=== PATIENT | male | born 1950 | race Caucasian/White ===

== ENCOUNTER → 2016-05-13 | Outpatient (CLI) | payer OTHER ==
[~2016-05-13] MED LIST: ASCO500T3 PO; ASPI325T45 PO; IBUP-103 PO; LISI-461 PO; METF-384 PO; NAPR500T3 PO
--- NOTE | 2016-05-14 07:55 | SPLIT NIGHT TECHNICIAN REPORT ---
[facility] Split Night Polysomnogram - Glass Loading Equipment Tender Report Study date: 05/13/2016 Referring Physician: Trevor Cervantes Pulmonary Name: JENISE MONROE Nadege Glass Loading Equipment Tender: Jacy [facility] Date of : 1950 Height: 65 years, Height 5' 10" Sex: Male Weight: 218 lbs Age: 65 Neck Circum: 19 inches BMI: Medications: 31.28 Metformin 1000 mg, Lisinopril 10 mg Patient History 65 yr. old male here for a modified split night sleep study if AHI is greater than 15 in 2 hours of sleep. Patient complains of witness apneas and loud snoring. Parameters Monitored NPSG: E1-M2, E2-M1, Fp1-M2, Fp2-M1, F3-M2, F4-M2, F4-M1, C3-M2, C4-M2, C4-M1, O1-M2, O2-M2, O2-M1, T3-M2, T4-M1, P3-M2, P4-M1, CHIN1, CHIN2, HR, EKG, Legs, PFLOW, SNOR, FLOW, CFLOW, Tidal Volume, THOR, ABDO, SpO2, PLTH, CPRESS, ETCO2 Wave, ETCO2, pH SLEEP SUMMARY DATA DIAGNOSTIC TREATMENT Lights Out: 9:33:33 PM 12:23:33 AM Lights On: 12:17:03 AM 5:39:03 AM Total Recording Time (TRT): 163.5 min. 316.0 min. Total Sleep Time (TST): 121.5 min. 275.5 min. NREM Time: 117.5 min. 215.5 min. REM Time: 4.0 min. 60.0 min. Sleep Period Time (SPT): 155.5 min. 314.5 min. Sleep Efficiency (SE): 74 % 87 % Sleep Latency: 8.0 min. 1.0 min. Arousal Index: 6.9 6.5 PAP Treatment Levels: 4, 5, 6, 8, 10, 11, 12, 13, 14, 15 * Optimal Pressure(s) SLEEP STAGING DATA DIAGNOSTIC TREATMENT Duration (min) TST % Duration (min) TST % Stage Wake: 42.0 min. -- 40.0 min. -- WASO: 34.0 min. -- 39.0 min. -- NREM: 117.5 min. 97 % 215.5 min. 78 % Stage N1: 20.5 min. 17 % 26.0 min. 9 % Stage N2: 90.0 min. 74 % 185.0 min. 67 % Stage N3: 7.0 min. 6 % 4.5 min. 2 % REM: 4.0 min. 3 % 60.0 min. 22 % POSITIONAL DATA Event Count Index Event Count Index Supine: 32 19.1 88 20.1 Supine NREM: 27 16.8 59 17.5 Supine REM: 5 75 29 29 Non-Supine: 0 0.0 2 7.5 Non-Supine NREM: 0 0.0 2 7.5 Non-Supine REM: N/A N/A N/A N/A AROUSAL SUMMARY DATA: Event Count Index Event Count Index Apnea Arousals: 1 0.5 3 1.5 Hypopnea Arousals: 4 2.0 11 2.4 Snore Arousals: 3 1.5 2 0.4 PLM Arousals: 6 3.0 13 2.8 Non-Specific Arousals: 0 0.0 3 0.7 Total Arousals: 14 6.9 30 6.5 MYOCLONUS (PLM) Event Count Index Event Count Index PLM: 138 68.1 290 63.2 PLM AROUSAL: 6 3.0 13 2.8 PLM W/O AROUSAL 138 68.1 277 60.3 PLM W/RESP EVENT 3 0.0 9 0.0 MYOCLONUS (PLM) Event Count Index Event Count Index LM: 2 14.3 58 12.6 LM AROUSAL: 2 1.0 2 0.4 LM W/O AROUSAL LM W/RESP EVENT LM NON SPECIFIC 151 74.6 311 67.7 HEART RATE DATA DIAGNOSTIC TREATMENT Sleep (bpm): 77 79 REM (bpm): 90 92 NREM (bpm): 93 95 Tachycardia Count: 0 0 Tachycardia Duration: 0.00 0 Bradycardia Count: 0 0 Bradycardia Duration: 0.00 0 DIAGNOSTIC PORTION TREATMENT PORTION RESPIRATORY DATA Event Count Index Event Count Index AHI: -- 15.8 -- 19.4 RDI: -- 15.8 -- 20 Obstructive Apnea: 1 0.5 7 1.5 Central Apnea: 0 0.0 0 0.0 Mixed Apnea: 0 0.0 0 0.0 Hypopnea: 31 15.3 82 17.9 RERA: 0 0.0 1 0.2 Total Apneas: 1 0.5 7 1.5 RESPIRATORY DATA REM NREM SLEEP REM NREM SLEEP Supine Position: Obstructive Apneas: 0 1 1 3 4 7 Central Apneas: 0 0 0 0 0 0 Mixed Apneas: 0 0 0 0 0 0 Hypopneas: 5 26 31 26 54 80 RERA 0 0 0 0 1 1 Total Supine Events: 5 27 32 29 59 88 Supine AHI: 75 16.8 19.1 29 17.5 20.1 Supine RDI: 75.0 16.8 19.1 29.0 17.8 20.4 REM NREM SLEEP REM NREM SLEEP Non-Supine Position: Obstructive Apneas: N/A 0 0 N/A 0 0 Central Apneas: N/A 0 0 N/A 0 0 Mixed Apneas: N/A 0 0 N/A 0 0 Hypopneas: N/A 0 0 N/A 2 2 RERA N/A 0 0 N/A 0 0 Total Supine Events: N/A 0 0 N/A 2 2 Supine AHI: N/A 0.0 0.0 N/A 7.5 7.5 Supine RDI: N/A 0.0 0.0 N/A 7.5 7.5 OXYGEN DESTAURATION DATA: Event Count Index Event Count Index REM Desaturations: 5 75.0 29 29.0 NREM Desaturations: 25 12.8 58 16.1 SNORE DATA DIAGNOSTIC TREATMENT Snore Time: 45.0 12:24:33 AM Snore TST%: 13 9 Snore Arousal Count: 3 2 Snore Arousal Index: 1.5 0.4 Desaturation Event Summary: Minimum %SpO2 Event Count Mean/Min/Max Duration(sec.) Desaturation Index % Time In Bed > 90 124 36.0 / 11.0 / 59.8 17.3 90.4 86 - 90 6 30.3 / 18.3 / 48.0 11.5 6.6 81 - 85 3 21.3 / 12.3 / 33.3 16.0 2.4 76 - 80 1 33.3 / 33.3 / 33.3 29.8 0.4 71 - 75 0 N/A 0.0 0.2 66 - 70 0 N/A 0.0 0.1 61 - 65 0 N/A 0.0 0.0 56 - 60 0 N/A 0.0 0.0 51 - 55 0 N/A 0.0 0.0 < 50 0 N/A 0.0 0.0 OXYGEN SATURATION DATA DIAGNOSTIC TREATMENT SpO2 Mean Sleep: 93 % 94 % SpO2 Mean REM: 90 % 92 % SpO2 Mean NREM: 93 % 95 % SpO2 Minimum Sleep: 80 % 66 % SpO2 Minimum REM: 80 % 66 % SpO2 Minimum NREM: 81 % 86 % Time Below 90% (TST): 4.3 14.8 Time Below 88% (TST): 1.6 8.9 Total REM NREM Awake <50% 0.0 min. 0.0 min. 0.0 min. 0.0 min. 51 - 60% 0.0 min. 0.0 min. 0.0 min. 0.0 min. 61 - 70% 0.3 min. 0.3 min. 0.0 min. 0.0 min. 71 - 80% 2.9 min. 2.9 min. 0.0 min. 0.0 min. 81 - 90% 42.5 min. 14.1 min. 10.5 min. 17.9 min. 91 - 100% 431.2 min. 46.6 min. 322.4 min. 62.2 min. Average 94 92 94 93 Minimum SpO2 66 66 81 81 Desaturation Event Index 16.2 31.9 15.0 10.2 # Desat. Events below 89% 27 21 6 0 Time(%) with Saturation below 89% 6.1 2.3 0.5 3.3 Time(min.) with Saturation below 89% 29.2 11.2 2.2 15.8 Recording Glass Loading Equipment Tender Comments: Mr. Monroe slept in the right and supine positions. No cardiac arrhythmia. PLMs noted. No bruxism noted. Snoring was noted and scored as a 4 on a scale of 0 through 5. (0=no snoring, 5=snoring loud enough to be heard through a closed door or down the cause[address] way) At 12:23 am , Mr. Monroe met specific Split-Night criteria during the diagnostic portion of this study. CPAP was initiated at +4 CMH2O and up-titrated to a level of +15 CMH2O Cflex 2. A Medium Simplus full face mask, was used during titration. Mr. Monroe did not wake to use the restroom during the night. The final report will be interpreted and signed by a sleep physician. The completed physician report will then be placed in the patient medical record. Therapy Event: Therapy (cm H20) 0 4 5 6 8 10 Total Time at Pressure (min.) 163.5 22.9 16.7 6.3 15.2 34.8 TST at Pressure (min.) 121.5 21.4 16.2 6.3 15.2 32.3 # Periods 1 1 1 1 1 1 Sleep Onset (min.) 8.0 1.0 0.0 0.0 0.0 0.0 REM Onset (min.) 123.0 N/A 15.6 0.0 0.0 N/A Sleep Efficiency % 74 93 97 100 100 92 Wakefulness (%) 25.7 6.6 3.0 0.0 0.0 7.2 Wakefulness (min.) 42.0 1.5 0.5 0.0 0.0 2.5 NREM 1 (%) 12.5 15.3 6.0 0.0 0.0 5.7 NREM 1 (min.) 20.5 3.5 1.0 0.0 0.0 2.0 NREM 2 (%) 55.0 78.2 84.3 0.0 4.1 87.1 NREM 2 (min.) 90.0 17.9 14.1 0.0 0.6 30.3 NREM 3 (%) 4.3 0.0 0.0 0.0 0.0 0.0 NREM 3 (min.) 7.0 0.0 0.0 0.0 0.0 0.0 REM (%) 2.4 0.0 6.8 100.0 95.9 0.0 REM (min.) 4.0 0.0 1.1 6.3 14.6 0.0 # Arousals 14 4 2 0 0 4 Arousal Index 6.9 11.2 7.4 0.0 0.0 7.4 # Snore 1,132 122 114 25 72 74 Snore Index 559.0 342.2 421.1 239.4 283.7 137.3 AHI 15.8 8.4 25.9 47.9 47.3 13.0 AHI Supine 19.1 8.4 25.9 47.9 47.3 18.5 AHI Non-Supine 0.0 N/A N/A N/A N/A 7.5 NREM AHI 13.8 8.4 23.8 N/A 95.5 13.0 REM AHI 75.0 N/A 52.9 47.9 45.2 N/A RDI 15.8 8.4 25.9 47.9 47.3 13.0 # Obstructive 1 0 0 3 0 0 # Central Ap 0 0 0 0 0 0 # Mixed 0 0 0 0 0 0 # Hypopneas 31 3 7 2 12 7 RERAS 0 0 0 0 0 0 Total Respiratory Events 32 3 7 5 12 7 Time Below SpO2 89.00% (min.) 2.5 0.0 0.6 3.5 4.3 0.0 Mean NREM SpO2 (%) 93 93 94 N/A 96 94 Mean REM SpO2 (%) 90 N/A 91 86 90 N/A Mean Sleep SpO2 (%) 93 93 93 86 90 94 Min NREM SpO2 (%) 81 90 86 N/A 90 90 Min REM SpO2 (%) 80 N/A 78 72 66 N/A Position Supine (min.) 100.3 21.4 16.2 6.3 15.2 16.3 Position Non-supine (min.) 21.2 0.0 0.0 0.0 0.0 16.1 LM Index Sleep 82.5 154.3 147.7 67.0 39.4 89.0 LM Index NREM 85.3 154.3 150.9 N/A 0.0 89.0 LM Index REM 0.0 N/A 105.7 67.0 41.1 N/A Mean Heart Rate (bpm) 77 79 80 84 82 81 Min Heart Rate (bpm) 67 71 68 77 68 71 Therapy (cm H20) 11 12 13 14 15 Total Time at Pressure (min.) 31.6 18.0 134.1 18.1 17.7 TST at Pressure (min.) 31.6 18.0 103.1 17.1 14.2 # Periods 1 1 1 1 1 Sleep Onset (min.) 0.0 0.0 0.0 0.0 0.0 REM Onset (min.) N/A 2.4 0.0 N/A N/A Sleep Efficiency % 100 100 76 94 80 Wakefulness (%) 0.0 0.0 23.1 5.5 19.7 Wakefulness (min.) 0.0 0.0 31.0 1.0 3.5 NREM 1 (%) 7.9 0.0 9.3 5.5 19.7 NREM 1 (min.) 2.5 0.0 12.5 1.0 3.5 NREM 2 (%) 77.8 13.5 50.8 88.9 60.6 NREM 2 (min.) 24.6 2.4 68.2 16.1 10.7 NREM 3 (%) 14.2 0.0 0.0 0.0 0.0 NREM 3 (min.) 4.5 0.0 0.0 0.0 0.0 REM (%) 0.0 86.5 16.7 0.0 0.0 REM (min.) 0.0 15.6 22.4 0.0 0.0 # Arousals 11 0 6 1 2 Arousal Index 20.9 0.0 3.5 3.5 8.4 # Snore 102 75 111 6 8 Snore Index 193.7 250.1 64.6 21.1 33.7 AHI 28.5 30.0 4.1 52.6 37.9 AHI Supine 28.5 30.0 4.1 52.6 37.9 AHI Non-Supine N/A N/A N/A N/A N/A NREM AHI 28.5 0.0 3.0 52.6 37.9 REM AHI N/A 34.7 8.0 N/A N/A RDI 30.4 30.0 4.1 52.6 37.9 # Obstructive 3 0 0 1 0 # Central Ap 0 0 0 0 0 # Mixed 0 0 0 0 0 # Hypopneas 12 9 7 14 9 RERAS 1 0 0 0 0 Total Respiratory Events 16 9 7 15 9 Time Below SpO2 89.00% (min.) 0.1 2.0 0.4 0.0 0.0 Mean NREM SpO2 (%) 95 95 96 94 94 Mean REM SpO2 (%) N/A 93 95 N/A N/A Mean Sleep SpO2 (%) 95 93 95 94 94 Min NREM SpO2 (%) 87 86 88 89 89 Min REM SpO2 (%) N/A 82 88 N/A N/A Position Supine (min.) 31.6 18.0 103.1 17.1 14.2 Position Non-supine (min.) 0.0 0.0 0.0 0.0 0.0 LM Index Sleep 87.4 3.3 80.9 7.0 0.0 LM Index NREM 87.4 0.0 100.4 7.0 0.0 LM Index REM N/A 3.9 10.7 N/A N/A Mean Heart Rate (bpm) 81 80 77 78 78 Min Heart Rate (bpm) 72 72 67 71 70
--- NOTE | 2016-05-14 23:17 | POLYSOMNOGRAPH REPORT ---
CLINICAL DATA: The patient is a 65-year-old male with BMI of 31.28, referred by Dr. Cervantes for a modified split-night study with a history of witnessed apnea and mild snoring. This was a split-night study. SLEEP ARCHITECTURE: For the diagnostic portion of the study, total sleep period was 155.5 minutes. Total sleep time was 121.5 minutes divided between 117.5 minutes of non-REM sleep and 4 minutes of REM sleep. Sleep efficiency was 74%. Arousal index was 6.9. Sleep latency was 8 minutes. Sleep consisted of stage N1 17%, N2 74%, N3 6%, REM 3%. For the treatment portion of the study, total sleep period was 314.5 minutes. Total sleep time was 275.5 minutes divided between 215.5 minutes of non-REM sleep and 60 minutes of REM sleep. Sleep latency was 1 minute. Sleep efficiency was 87%. Arousal index was 6.5. Sleep consisted of stage N1 9%, N2 67%, N3 2%, and REM 22%. AROUSAL DATA: Prior to treatment, 14 arousals were recorded for an index of 6.9 per hour. Following treatment, 30 arousals were recorded for an index of 6.5 per hour. PLM DATA: Prior to treatment, 151 limb movements during sleep were noted for an index of 74.6 per hour. Following treatment, 311 limb movements during sleep were noted for an index of 67.7 per hour. EKG: Heart rates ranged from 77-95 beats per minute. No arrhythmias were noted. RESPIRATORY DATA: Moderate sleep apnea was documented prior to treatment. The AHI was 15.8. There was 1 obstructive apneic episode and 31 hypopneic episodes recorded. Following treatment, the mean AHI was 19.4. There were 7 obstructive apneic episodes and 82 hypopneic episodes recorded. OXIMETRY DATA: Nocturnal hypoxemia was seen prior to treatment. Oxygen aydin was 66% during REM sleep during treatment. Mean saturation during treatment was 94%. CLIP ON SUNGLASSES INSPECTOR'S COMMENTS AND TREATMENT SUMMARY: The patient slept in the right and supine positions. Snoring was severe, rated 4 on a scale of 1 through 5. At 12:23 a.m., the patient met split-night criteria. CPAP was started using a medium Simplus full face mask. The patient was started on CPAP and was titrated incrementally up to 15 cm of water pressure. At 13 cm water pressure, the patient slept for 103 minutes with an AHI of 4.1. However, he continued to develop progressive hypopneic episodes and apneic episodes in the last hour of sleep. CPAP was increased to 15 cm water pressure. However, at that pressure setting, the patient only slept for 14 minutes and had an AHI of 37.9. IMPRESSION: Moderate sleep apnea/hypopnea with a diagnostic AHI of 15.8 with an attempt at CPAP titration. No optimal pressure setting could be obtained during the limited time of CPAP titration. RECOMMENDATIONS: The patient may benefit from use of auto-CPAP or repeat full sleep study with CPAP/BiPAP titration. Clinical correlation is needed. ROCHELLED
--- NOTE | 2016-05-20 09:31 | CODING QUERY MEDICAL NECESSITY ---
SUPPORTING DIAGNOSIS NEEDED A supporting diagnosis is required for the test/procedure performed on this patient in order for us to be reimbursed by the patient's insurance. Please provide a supporting diagnosis for the following test/procedure listed below next to the test name along with your signature. *If there is no additional diagnosis for this patient that would support the following test/procedure please document that below next to the test/procedure. Test(s)/Procedure(s) that require a supporting diagnosis: * SLEEP STUDY DIAGNOSIS: * DOS: 05/13/16 Provider Signature: Date: Thank you Shalini Barton Health Information Management Once completed, please kindly fax back to [phone] For questions please call [phone]
== END | disposition home or self-care (01) ==
LOC: C.NEUR 21:00
PROVIDERS: ATTEND Internal Medicine Pulmonary Disease
DX: I10 Essential (primary) hypertension (principal); G47.9 Sleep disorder, unspecified

== ENCOUNTER → 2016-05-27 | Outpatient (CLI) | payer OTHER ==
[~2016-05-27] VITALS: Ht 179.1 cm; Wt 101.4 kg
[2016-05-27 14:59] VITALS: BP 144/85; PULSE 94; Ht 179.1 cm; Wt 101.4 kg
== END | disposition home or self-care (01) ==
LOC: C.NEUR 14:40
PROVIDERS: ATTEND Internal Medicine Pulmonary Disease
DX: G47.33 Obstructive sleep apnea (adult) (pediatric) (principal)

== ENCOUNTER → 2016-08-09 | Outpatient (CLI) | payer OTHER ==
[2016-08-09 12:23] LABS: ESTIMATED AVERAGE GLUCOSE 111 mg/dl; HA1C FLAG Normal (Normal)
[2016-08-09 12:29] LABS: ALT/SGPT 22 U/L (12-78); BLOOD UREA NITROGEN 14 mg/dl (7-18); BUN/CREATININE RATIO 20.3 (10-20); CALCIUM 8.3 mg/dl (8.5-10.1); CARBON DIOXIDE 27 mmol/L (21-32); CHLORIDE 106 mmol/L (98-107); CHOLESTEROL 176 mg/dl (0-200); CREATININE 0.71 mg/dl (0.60-1.40); GLUCOSE 114 mg/dl (70-99); POTASSIUM 3.9 mmol/L (3.5-5.1); SODIUM 140 mmol/L (136-145); TRIGLYCERIDES 160 mg/dl (0-150); VERY LOW DENSITY LIPOPROT CALC 32 mg/dl
[2016-08-09 12:34] LABS: ALKALINE PHOSPHATASE 50 U/L (45-117); AST/SGOT 16 U/L (15-37); CHOLESTEROL/HDL RATIO 4.9; HDL CHOLESTEROL 36 mg/dl; LDL CHOLESTEROL CALCULATED 108 mg/dl
[2016-08-09 12:42] LABS: RATIO 4.9 mcg/mg (0-30.0)
== END | disposition home or self-care (01) ==
LOC: C.LABBFT 07:52
PROVIDERS: ATTEND Family Medicine
DX: E11.9 Type 2 diabetes mellitus without complications (principal); Z12.5 Encounter for screening for malignant neoplasm of prostate; E78.5 Hyperlipidemia, unspecified

== ENCOUNTER → 2017-02-17 | Outpatient (CLI) | payer OTHER ==
[2017-02-17 12:45] LABS: ESTIMATED AVERAGE GLUCOSE 108 mg/dl; HA1C FLAG Normal (Normal)
[2017-02-17 12:58] LABS: ALT/SGPT 24 U/L (12-78); AST/SGOT 17 U/L (15-37); BLOOD UREA NITROGEN 19 mg/dl (7-18); BUN/CREATININE RATIO 22.5 (10-20); CALCIUM 8.8 mg/dl (8.5-10.1); CARBON DIOXIDE 27 mmol/L (21-32); CHLORIDE 106 mmol/L (98-107); CREATININE 0.85 mg/dl (0.60-1.40); GLUCOSE 101 mg/dl (70-99); POTASSIUM 4.2 mmol/L (3.5-5.1); SODIUM 139 mmol/L (136-145)
[2017-02-17 13:01] LABS: ALKALINE PHOSPHATASE 50 U/L (45-117); CHOLESTEROL 179 mg/dl (0-200); CHOLESTEROL/HDL RATIO 4.3; HDL CHOLESTEROL 42 mg/dl; LDL CHOLESTEROL CALCULATED 113 mg/dl; TRIGLYCERIDES 121 mg/dl (0-150); VERY LOW DENSITY LIPOPROT CALC 24 mg/dl
== END | disposition home or self-care (01) ==
LOC: C.LABBFT 07:53
PROVIDERS: ATTEND Internal Medicine
DX: I10 Essential (primary) hypertension (principal); E78.5 Hyperlipidemia, unspecified; E11.9 Type 2 diabetes mellitus without complications

== ENCOUNTER → 2017-02-24 | Outpatient (CLI) | payer OTHER ==
[~2017-02-24] VITALS: Ht 177.8 cm; Wt 98.4 kg
[2017-02-24 11:33] VITALS: BP 151/92; PULSE 82; Ht 177.8 cm; Wt 98.4 kg
== END | disposition home or self-care (01) ==
LOC: C.NEUR 08:45
PROVIDERS: ATTEND Internal Medicine Pulmonary Disease
DX: G47.33 Obstructive sleep apnea (adult) (pediatric) (principal)

== ENCOUNTER 2017-04-28 23:52 | Emergency (ER) | payer OTHER ==
[~2017-04-28] VITALS: Ht 177.8 cm; Wt 101.2 kg
[~2017-04-28 23:52] MED LIST changes: +ASPECOTC PO; -ASPI325T45 PO; +NAPR-1231 PO; -NAPR500T3 PO
[2017-04-28 23:55] VITALS: TEMP 36.8; Ht 177.8 cm; Wt 101.2 kg
[2017-04-29] MEDS ORDERED: METOPROLOL TARTRATE 50 MG TAB PO STA (00:18)
--- NOTE | 2017-04-29 00:27 | EMERGENCY ROOM VISIT NOTE ---
History Report prepared by Poojaibtirso: Yojana Pace Under the Supervision of: Dr. Cyndi Oliveira M.D. First contact with patient: 00:05 Chief Complaint: HYPERTENSION Stated Complaint: BLOOD PRESSURE HIGH,LIGHT HEADED History of Present Illness The patient is a 66 year old male who presents to the Emergency Room with complaints of an episode on hypertension occurring about an hour ago. The patient states he was in the shower this evening when he stated to feel light headed. He then checked his blood sugar which was normal. The patient notes that a couple hours after showering he was watching television and started to feel lightheaded again. During this second episode of lightheadedness, he took his blood pressure which was elevated. He patient notes taking his blood pressure mediation this morning. The patient was last seen by PCP a month ago who upped his blood pressure medication. The patient notes lack of sleep but denies any shortness of breath or chest pain. The patient wears a CPAP. He take trazodone and notes he has been "struggling" with his CPAP machine. The patient reports chronic neck pain and states that his CPAP machine aggravates his neck pain. He follows with Dr. Briceno and reports going through five different CPAP masks because he has been unable to find one that works for him. The patient does not check his blood pressure regularly. The patient takes 50 mg losartan daily. The patient has a history of diabetes and hypertension. Source of History: patient Onset: an hour ago Position: other (generalized) Quality: other (hypertension) Timing: other (episode) Associated Symptoms: No chest pain, No SOB Review of Systems See HPI for pertinent positives & negatives. A total of 10 systems reviewed and were otherwise negative. Past Medical & Surgical Medical Problems: (1) Diabetes (2) HTN (hypertension) Family History Cancer Hypertension Social History Smoking Status: Never Smoker Drug Use: none Marital Status: Housing Status: lives with family Occupation Status: employed Current/Historical Medications Scheduled Ascorbic Acid (Vitamin C), 500 MG PO QAM Losartan Potassium (Cozaar), 50 MG PO DAILY Metformin Hcl (Glucophage), 1,000 MG PO BID Metoprolol Tartrate (Lopressor) (Lopressor), 25 MG PO BID Trazodone Hcl (Trazodone), 50 MG PO HS Allergies Coded Allergies: Promethazine (Unverified Allergy, Intermediate, HALLUNICATIONS, 01/06/16) Penicillins (Verified Allergy, Unknown, 01/06/16) Physical Exam Vital Signs Date Time Temp Pulse Resp B/P (MAP) Pulse Ox O2 Delivery O2 Flow Rate FiO2 04/29/17 02:00 70 16 118/81 94 Room Air 04/29/17 01:30 73 16 126/85 95 Room Air 04/29/17 01:15 77 16 133/86 96 Room Air 04/29/17 01:00 84 18 136/82 95 Room Air 04/29/17 00:37 90 18 155/101 95 Room Air 04/29/17 00:20 92 04/28/17 23:55 36.8 89 18 167/95 95 Room Air Physical Exam Vital signs reviewed. General: Well-appearing male, in no significant distress. HEENT: No scleral icterus, PERRLA, neck supple. Atraumatic. Cardiovascular: Noted to be hypertensive. Regular rate and rhythm, no extra sounds. Pulmonary: Clear to auscultation bilaterally, normal work of breathing. Abdomen: Soft, nontender, nondistended, positive bowel sounds. Musculoskeletal: Atraumatic, no peripheral edema. Neurologic: Patient awake alert and oriented x 3, full strength in all 4 extremities. Cranial nerves 2 through 12 grossly intact. Skin: Warm, dry, no rash Medical Decision & Procedures ER Provider Diagnostic Interpretation: CHEST X-RAY: no focal lung consolidation, no failure. Laboratory Results 04/29/17 00:30 Red Blood Count 4.79, Mean Corpuscular Volume 88.3, Mean Corpuscular Hemoglobin 31.5, Mean Corpuscular Hemoglobin Concent 35.7, Mean Platelet Volume 9.5, Neutrophils (%) (Auto) 73.0, Lymphocytes (%) (Auto) 17.5, Monocytes (%) (Auto) 6.1, Eosinophils (%) (Auto) 2.8, Basophils (%) (Auto) 0.4, Neutrophils # (Auto) 6.87, Lymphocytes # (Auto) 1.65, Monocytes # (Auto) 0.57, Eosinophils # (Auto) 0.26, Basophils # (Auto) 0.04 04/29/17 00:30 Test 04/29/17 00:20 04/29/17 00:30 04/29/17 00:34 Urine Color YELLOW Urine Appearance CLEAR (CLEAR) Urine pH 5.5 (4.5-7.5) Urine Specific [place] 1.022 (1.000-1.030) Urine Protein NEG (NEG) Urine Glucose (UA) NEG (NEG) Urine Ketones NEG (NEG) Urine Occult Blood NEG (NEG) Urine Nitrite NEG (NEG) Urine Bilirubin NEG (NEG) Urine Urobilinogen NEG (NEG) Urine Leukocyte Esterase NEG (NEG) White Blood Count 9.41 K/uL (4.8-10.8) Red Blood Count 4.79 M/uL (4.7-6.1) Hemoglobin 15.1 g/dL (14.0-18.0) Hematocrit 42.3 % (42-52) Mean Corpuscular Volume 88.3 fL (80-100) Mean Corpuscular Hemoglobin 31.5 pg (25-34) Mean Corpuscular Hemoglobin Concent 35.7 g/dl (32-36) Platelet Count 218 K/uL (130-400) Mean Platelet Volume 9.5 fL (7.4-10.4) Neutrophils (%) (Auto) 73.0 % Lymphocytes (%) (Auto) 17.5 % Monocytes (%) (Auto) 6.1 % Eosinophils (%) (Auto) 2.8 % Basophils (%) (Auto) 0.4 % Neutrophils # (Auto) 6.87 K/uL (1.4-6.5) Lymphocytes # (Auto) 1.65 K/uL (1.2-3.4) Monocytes # (Auto) 0.57 K/uL (0.11-0.59) Eosinophils # (Auto) 0.26 K/uL (0-0.5) Basophils # (Auto) 0.04 K/uL (0-0.2) RDW Standard Deviation 39.6 fL (36.4-46.3) RDW Coefficient of Variation 12.3 % (11.5-14.5) Immature Granulocyte % (Auto) 0.2 % Immature Granulocyte # (Auto) 0.02 K/uL (0.00-0.02) Anion Gap 7.0 mmol/L (3-11) Est Creatinine Clear Calc Drug Dose 89.7 ml/min Estimated GFR () 96.2 Estimated GFR (Non- 83.0 BUN/Creatinine Ratio 18.3 (10-20) Calcium Level 8.7 mg/dl (8.5-10.1) Total Bilirubin 0.6 mg/dl (0.2-1) Direct Bilirubin 0.1 mg/dl (0-0.2) Aspartate Amino Transf (AST/SGOT) 16 U/L (15-37) Alanine Aminotransferase (ALT/SGPT) 24 U/L (12-78) Alkaline Phosphatase 64 U/L (45-117) Total Creatine Kinase 97 U/L (39-308) Creatine Kinase MB 1.5 ng/ml (0.5-3.6) Creatine Kinase MB Ratio 1.5 (0-3.0) Total Protein 7.1 gm/dl (6.4-8.2) Albumin 3.7 gm/dl (3.4-5.0) Thyroid Stimulating Hormone (TSH) 8.940 uIu/ml (0.300-4.500) Free Thyroxine 0.98 ng/dl (0.80-1.60) Bedside Troponin I < 0.030 ng/ml (0-0.045) Laboratory results per my review. Medications Administered Medications (Trade) Dose Ordered Sig/Mini Route Start Time Stop Time Status Last Admin Dose Admin Metoprolol Tartrate (Lopressor Tab) 25 mg NOW STAT PO 04/29/17 00:18 04/29/17 00:21 DC 04/29/17 00:37 25 MG ECG Indication: other (hypertension) Rate (beats per minute): 90 Rhythm: normal sinus Findings: no acute ischemic change, no ectopy ED Course 0013: Past medical records reviewed. The patient was evaluated in room B2. A complete history and physical examination was performed. 0018: Ordered Lopressor Tab 25 mg PO. 0158: I updated the patient on his test results. The patient is resting comfortably. 0214: Upon reevaluation, the patient appeared to have improvement of his symptoms. I discussed findings with him. He verbalized agreement of the treatment plan. The patient was discharged home. Medical Decision Differential diagnosis: Etiologies such as benign hypertension, hypertensive emergency, cardiovascular pathology, pheochromocytoma, electrolyte abnormality, renal disease, endorgan damage, as well as others were entertained. This patient was evaluated and appeared to be in no significant distress. IV access was obtained and laboratory work was drawn. Patient was placed on the playground monitor. Patient is noted to be markedly hypertensive. He was given 25 mg of metoprolol by mouth. Chest x-ray was obtained and is clear. EKG reveals no evidence of acute ischemia. The patient's blood pressure did respond well. Laboratory work is fairly unrevealing. The patient was given a prescription for metoprolol 25 mg twice a day and will follow-up with his primary care physician this week. He will return to the ER for worsening of symptoms or any medical concerns. Medication Reconcilliation Current Medication List: was personally reviewed by me Blood Pressure Screening Patient's blood pressure: Elevated blood pressure Blood pressure disposition: Referred to PCP Impression Primary Impression: HTN (hypertension) Scribe Attestation The scribe's documentation has been prepared under my direction and personally reviewed by me in its entirety. I confirm that the note above accurately reflects all work, treatment, procedures, and medical decision making performed by me. Departure Information Dispostion Home / Self-Care Prescriptions Metoprolol Tartrate (Lopressor) (Lopressor) 25 Mg Tab 25 MG PO BID for 14 Days, #28 TAB Prov: Cyndi Oliveira M.D. 04/29/17 Referrals Unique Burton M.D. (PCP) Forms HOME CARE DOCUMENTATION FORM, IMPORTANT VISIT INFORMATION, WORK / SCHOOL INSTRUCTIONS Patient Instructions My [facility] Additional Instructions Diagnosis: Hypertension Metoprolol 25 mg twice daily Continue losartan as prescribed. Follow-up with Dr. Butron in one to 2 weeks for blood pressure recheck. Return to the ER for worsening of symptoms or any medical concerns.
[2017-04-29 00:47] LABS: BASO % 0.4 %; BASO ABS # 0.04 K/uL (0-0.2); EOS % 2.8 %; EOS ABS # 0.26 K/uL (0-0.5); HEMATOCRIT 42.3 % (42-52); HEMOGLOBIN 15.1 g/dL (14.0-18.0); IG# 0.02 K/uL (0.00-0.02); LYMPH % 17.5 %; LYMPH ABS # 1.65 K/uL (1.2-3.4); MEAN CELL VOLUME 88.3 fL (80-100); MEAN CORPUSCULAR HEMOGLOBIN 31.5 pg (25-34); MEAN CORPUSCULAR HGB CONC 35.7 g/dl (32-36); MEAN PLATELET VOLUME 9.5 fL (7.4-10.4); MONO % 6.1 %; MONO ABS # 0.57 K/uL (0.11-0.59); NEUT ABS # 6.87 K/uL (1.4-6.5); PLATELET COUNT 218 K/uL (130-400); RED CELL DISTRIBUTION WIDTH CV 12.3 % (11.5-14.5); RED CELL DISTRIBUTION WIDTH SD 39.6 fL (36.4-46.3); WHITE BLOOD COUNT 9.41 K/uL (4.8-10.8)
[2017-04-29 01:13] LABS: ALBUMIN 3.7 gm/dl (3.4-5.0); CALCIUM 8.7 mg/dl (8.5-10.1); CREATININE 0.94 mg/dl (0.60-1.40); POTASSIUM 3.9 mmol/L (3.5-5.1)
[2017-04-29] MEDS ORDERED: LOSA50TA6 PO (01:15)
[2017-04-29] MEDS ORDERED: TRAZ50TA35 PO (01:16)
[2017-04-29 01:24] LABS: CKMB 1.5 ng/ml (0.5-3.6); TOTAL PROTEIN 7.1 gm/dl (6.4-8.2)
[2017-04-29] MEDS ORDERED: METO25TA56 PO (01:56)
[2017-04-29 02:00] VITALS: BP 118/81; PULSE 70; O2SAT 94
--- NOTE | 2017-04-29 07:06 | DIAGNOSTIC IMAGING REPORT ---
SINGLE VIEW CHEST CLINICAL HISTORY: Hypertension. Atypical chest pain. FINDINGS: An AP, portable, upright chest radiograph is compared to study dated 01/06/2016. The examination is degraded by portable technique and patient rotation. The cardiomediastinal silhouette is unremarkable. The lungs and pleural spaces are clear. No pneumothorax is seen. The bony thorax is grossly intact. Mild arthritic change is present in the shoulders. IMPRESSION: No acute cardiopulmonary abnormality. Electronically signed by: Durga Blas M.D. 04/29/2017 7:04 AM Dictated Date/Time: 04/29/2017 7:04 AM
[2017-09-06] MEDS ORDERED: METO50TA8 PO (13:29)
[2017-09-06] MEDS ORDERED: ASPI81TA28 PO (13:29)
[2017-09-06] MEDS ORDERED: B-COTAB18 PO (13:29)
== END 2017-04-29 02:08 | disposition home or self-care (01) ==
LOC: C.EDB 23:54
DX: I10 Essential (primary) hypertension (principal); E11.9 Type 2 diabetes mellitus without complications

== ENCOUNTER → 2017-08-18 | Outpatient (CLI) | payer OTHER ==
[~2017-08-18] VITALS: Ht 179.1 cm; Wt 100.8 kg
[~2017-08-18] MED LIST changes: -ASPECOTC PO; -IBUP-103 PO; -LISI-461 PO; +LOSA50TA6 PO; -NAPR-1231 PO; +TRAZ50TA35 PO
[2017-08-18 09:25] VITALS: BP 146/83; PULSE 78; Ht 179.1 cm; Wt 100.8 kg
== END | disposition home or self-care (01) ==
LOC: C.NEUR 08:42
PROVIDERS: ATTEND Internal Medicine Pulmonary Disease
DX: G47.33 Obstructive sleep apnea (adult) (pediatric) (principal)

== ENCOUNTER → 2017-08-29 | Outpatient (CLI) | payer OTHER | END | disposition home or self-care (01) | LOC: C.CPL 12:43 | DX: M25.521 Pain in right elbow (principal) ==

== ENCOUNTER → 2017-08-30 | Outpatient (CLI) | payer OTHER ==
[2017-08-30 12:33] LABS: HEMOGLOBIN A1C 5.5 % (4.5-5.6)
[2017-08-30 12:59] LABS: ALBUMIN 3.8 gm/dl (3.4-5.0); ALT/SGPT 23 U/L (12-78); AST/SGOT 20 U/L (15-37); BLOOD UREA NITROGEN 15 mg/dl (7-18); CALCIUM 8.6 mg/dl (8.5-10.1); CARBON DIOXIDE 30 mmol/L (21-32); CHOLESTEROL 172 mg/dl (0-200); GLUCOSE 98 mg/dl (70-99); SODIUM 140 mmol/L (136-145)
[2017-08-30 13:04] LABS: ALKALINE PHOSPHATASE 55 U/L (45-117); LDL CHOLESTEROL CALCULATED 105 mg/dl; TOTAL PROTEIN 7.6 gm/dl (6.4-8.2)
== END | disposition home or self-care (01) ==
LOC: C.LABBFT 07:27
PROVIDERS: ATTEND Internal Medicine
DX: Z00.00 Encounter for general adult medical examination without abnormal findings (principal); Z12.5 Encounter for screening for malignant neoplasm of prostate; I10 Essential (primary) hypertension; E78.5 Hyperlipidemia, unspecified; E11.9 Type 2 diabetes mellitus without complications; G47.00 Insomnia, unspecified

== ENCOUNTER 2017-09-08 04:45 | Day surgery (SDC) | payer OTHER ==
[2017-09-06 13:13] VITALS: Ht 177.8 cm; Wt 99.1 kg
--- NOTE | 2017-09-07 11:17 | HISTORY & PHYSICAL EXAMINATION ---
DATE OF ADMISSION: 09/08/2017 CHIEF COMPLAINT: Right elbow pain. HISTORY OF PRESENT ILLNESS: The patient is a 67-year-old male seen and evaluated in our office for complaints of right elbow pain and disability. He states he was doing some work, felt a pop in the elbow. An MRI was ordered and confirmed a distal biceps tendon rupture. He is now scheduled for a right distal biceps tendon repair. PAST MEDICAL HISTORY: Hypertension, sleep apnea with CPAP use, type 2 diabetes. PAST SURGICAL HISTORY: Bilateral carpal tunnel surgery, bilateral rotator cuff surgery, left knee surgery. MEDICATIONS: Losartan 75 mg daily, metformin 1000 mg twice daily, trazodone 50 mg at bedtime p.r.n., Lopressor tartrate 25 mg daily, vitamin C 1000 mg daily, super vitamin B complex daily, aspirin 81 mg daily. ALLERGIES: PENICILLIN, PHENERGAN. SOCIAL HISTORY AND REVIEW OF SYSTEMS: Noncontributory. PHYSICAL EXAMINATION: GENERAL: A well-nourished, well-developed elderly male, who appears stated age. HEENT: Normocephalic, atraumatic, extraocular movements intact, oropharynx pink and moist. NECK: Supple without adenopathy. LUNGS: Clear to auscultation bilaterally. HEART: Regular rate and rhythm. ABDOMEN: Soft, nontender, nondistended. EXTREMITIES: The right elbow demonstrates visual deformity of the distal biceps. The distal biceps is nonpalpable compared to the left elbow. He has a positive hook test. X-RAYS: X-rays and MRI were reviewed. The MRI shows a complete rupture of the distal biceps tendon. ASSESSMENT: Right elbow distal biceps tendon rupture. PLAN: Risks versus benefits were discussed, consent was obtained. We will proceed with a right distal biceps tendon repair as indicated.
[~2017-09-08] VITALS: Ht 177.8 cm; Wt 99.1 kg
[~2017-09-08 04:45] MED LIST changes: -ASCO500T3 PO; +ASPI81TA28 PO; +B-COTAB18 PO; +METO50TA8 PO
[2017-09-08 05:39] VITALS: BP 140/80; PULSE 70; TEMP 37.2; O2SAT 97
[2017-09-08] MEDS ORDERED: LACTATED RINGER'S 1000ML 1,000 ML IV SCH (06:00)
[2017-09-08] MEDS ORDERED: CLINDAMYCIN 600 MG/54 ML D5W IV SCH (06:00)
[2017-09-08] MEDS ORDERED: ROPIVACAINE 0.5% 5 MG/ML 30 ML VIAL ONE (06:34)
[2017-09-08] MEDS ORDERED: CLONIDINE HCL 100 MCG/ML SYRINGE ONE (06:35)
[2017-09-08] MEDS ORDERED: LIDOCAINE HCL 2% 2 ML VIAL (20MG/ML) ONE (06:37)
[2017-09-08] MEDS ORDERED: MIDAZOLAM HCL 1 MG/ML 2ML VIAL ONE (06:37)
[2017-09-08] MEDS ORDERED: FENTANYL CITRATE INJ 50 MCG/1 ML 2 ML VIAL ONE (06:37)
[2017-09-08] MEDS ORDERED: DEXAMETHASONE SOD INJ 4 MG/ML VIAL ONE (06:37)
[2017-09-08] MEDS ORDERED: ONDANSETRON INJ 2 MG/ML 2 ML VIAL ONE (06:37)
[2017-09-08] MEDS ORDERED: PROPOFOL IV EMULSION 10 MG/ML 20 ML VIAL ONE (06:37)
--- NOTE | 2017-09-08 07:00 | History & Physical Bridge Note ---
H&P Re-Evaluation Bridge Note: I have examined the patient, reviewed the History & Physical and in the interval since the performance of the History & Physical I have noted the following changes of clinical significance: No changes noted
[2017-09-08] MEDS ORDERED: EpHEDrine SULFATE INJ 50 MG/ML AMP ONE (07:33)
[2017-09-08] MEDS ORDERED: SODIUM CHLORIDE 0.9% INJ 10 ML VIAL ONE (07:33)
--- NOTE | 2017-09-08 08:07 | [facility] Post Operative Brief Note ---
Immediate Operative Summary Operative Date September 08, 2017. Pre-Operative Diagnosis RIGHT DISTAL BICEP TEAR Post-Operative Diagnosis SAME PREOP Procedure(s) Performed RIGHT ELBOW DISTAL BICEP REPAIR Surgeon DR. Fly OBRIEN Hooker Off Surgeon(s) Luis Manuel TENORIO PAC Estimated Blood Loss 20ML Findings Consistent with Post-Op Diagnosis Specimens NONE Drains None Anesthesia Type General Complication(s) none Disposition Disposition: Recovery Room / PACU Overlapping Procedure I was present for: the critical portions of procedure. I was immediately available: during the entire case
[2017-09-08] MEDS ORDERED: FENTANYL CITRATE INJ 50 MCG/1 ML 2 ML VIAL IV PRN (08:15)
[2017-09-08] MEDS ORDERED: EpHEDrine SULFATE INJ 50 MG/ML AMP IV PRN (08:15)
[2017-09-08] MEDS ORDERED: NALOXONE HCL 0.4 MG/1 ML VIAL/CARP IV PRN (08:15)
[2017-09-08] MEDS ORDERED: ATROPINE SULFATE 0.1 MG/ML 5ML SYR IV PRN (08:15)
[2017-09-08] MEDS ORDERED: PHENYLEPHRINE 100MCG/ML 5ML SYR IV PRN (08:15)
[2017-09-08] MEDS ORDERED: ONDANSETRON INJ 2 MG/ML 2 ML VIAL IV PRN (08:15)
[2017-09-08] MEDS ORDERED: HYDROmorphone INJ 0.5 MG/0.5 ML SYR IV PRN (08:15)
[2017-09-08] MEDS ORDERED: MEPERIDINE HCL 25 MG/ML CARP IV PRN (08:15)
[2017-09-08] MEDS ORDERED: FLUMAZENIL 0.1 MG/1 ML 10 ML VIAL IV PRN (08:15)
[2017-09-08] MEDS ORDERED: LABETALOL HCL IV 5 MG/ML 20ML IV PRN (08:15)
[2017-09-08] MEDS ORDERED: SODIUM CHLORIDE 0.9% 1000ML 1,000 ML IV SCH (08:22)
[2017-09-08] MEDS ORDERED: OXYC-57 PO (08:23)
--- NOTE | 2017-09-08 08:27 | DIAGNOSTIC IMAGING REPORT ---
R ELBOW 2 VIEWS CLINICAL HISTORY: RT ELBOW Fluoroscopy time: 8 seconds FINDINGS: Single fluoroscopic spot image of the right elbow. Fluoroscopy provided for attachment of the distal biceps tendon. There is a single pin at the radial tubercle. The hardware appears intact. IMPRESSION: Fluoroscopy provided for attachment of the distal biceps tendon. Electronically signed by: Sylvester Mar M.D. 09/08/2017 8:26 AM Dictated Date/Time: 09/08/2017 8:25 AM
--- NOTE | 2017-09-08 08:27 | Discharge Instructions ---
Discharge Instructions Date of Service September 08, 2017. Visit Reason for Visit: Right Elbow Distal Bicep Tear Discharge Discharge Diagnosis / Problem: Right distal biceps tendon rupture Discharge Goals Goal(s): Decrease discomfort, Improve function Activity Recommendations Activity Limitations: as noted below Anesthesia . Post Anesthesia Instructions: If you have had General Anesthesia or IV Sedation: * Do not drive today. * Resume driving when surgeon permits. * Do not make important decisions or sign legal documents today. * Call surgeon for: 1. Temperature elevations greater than 101 degrees F. 2. Uncontrollable pain. 3. Excessive bleeding. 4. Persistent nausea and vomiting. 5. Medication intolerance (nausea, vomiting or rash). * For nausea and vomiting use only clear liquids such as: tea, soda, bouillon until nausea subsides, then gradually increase diet as tolerated. * If you have any concerns or questions, call your surgeon's office. If physician is unavailable and it is an emergency, call 911 or go to the nearest emergency room. . Instructions / Follow-Up Instructions / Follow-Up Maintain dressing x 48 hours then may remove and shower. Apply light dressing to wound as necessary. Sling for comfort, gentle elbow range of motion as tolerated. No lifting right arm. Ice to elbow as needed for discomfort. Follow -up with Dr Du ~ 10-14 days, call for appt or with questions if necessary [phone] Diet Recommendations Recommended Home Diet: resume previous diet Procedures Procedures Performed: RIGHT ELBOW DISTAL BICEP REPAIR Pending Studies Studies pending at discharge: no Medical Emergencies . Who to Call and When: Medical Emergencies: If at any time you feel your situation is an emergency, please call 911 immediately. . Non-Emergent Contact Non-Emergency issues call your: Surgeon Call Non-Emergent contact if: temperature is above 101.5, your pain is not controlled, wound has increased drainage, wound has increased redness . . "Provider Documentation" section prepared by Chava Resendiz PA-C. . [facility] Drug Monitoring Program Search Results: patient reviewed within database, no issues identified
[2017-09-08] MEDS ORDERED: OXYCODONE/ACETAMINOPHEN 5-325 TAB PO PRN ×2 (08:30)
--- NOTE | 2017-09-08 09:15 | Anesthesiology Progress Note ---
Anesthesia Post Op Note Date & Time September 08, 2017 at 09:14 Vital Signs Pain Intensity: 0 Vital Signs Past 12 Hours Date Time Temp Pulse Resp B/P (MAP) Pulse Ox O2 Delivery O2 Flow Rate FiO2 09/08/17 09:00 36.4 82 16 122/76 96 Room Air 09/08/17 08:50 78 14 129/77 95 Room Air 09/08/17 08:40 84 16 127/83 97 Room Air 09/08/17 08:30 85 16 148/90 100 Oxymask 3 09/08/17 08:23 36.5 79 16 135/85 100 Oxymask 5 09/08/17 05:39 37.2 70 20 140/80 (100) 97 Room Air Notes Mental Status: alert / awake / arousable, participated in evaluation Pt Amnestic to Procedure: Yes Nausea / Vomiting: adequately controlled Pain: adequately controlled Airway Patency, RR, SpO2: stable & adequate BP & HR: stable & adequate Hydration State: stable & adequate Anesthetic Complications: no major complications apparent
[2017-09-08 09:20] VITALS: BP 119/75; PULSE 77; TEMP 36.5; O2SAT 96
--- NOTE | 2017-09-08 09:37 | OPERATIVE REPORT ---
DATE OF OPERATION: 09/08/2017 PREOPERATIVE DIAGNOSIS: Distal biceps tendon rupture, right. POSTOPERATIVE DIAGNOSIS: Distal biceps tendon rupture, right. PROCEDURE: Distal biceps tendon repair, right. SURGEON: Dr. Gerardo Du. ANESTHESIA: General. COMPLICATIONS: None. DESCRIPTION OF PROCEDURE: Following induction of general anesthesia, the patient's right arm was prepped and draped in the usual sterile manner. It was exsanguinated with an Esmarch bandage. Tourniquet was inflated to 250 mmHg. A longitudinal incision was made over the proximal volar forearm. Subcutaneous tissue was bluntly dissected. Electrocautery was used for hemostasis. The blunt dissection was taken down through the subcutaneous tissue, and the biceps tendon was identified, was found to be scarred distally. This was dissected, and some serous fluid emanated from the area of the pseudo attachment, and scar tissue was divided until the biceps was freed. The distal biceps tissue was very friable. It was trimmed of a friable tissue into a diameter that would be able to be docked. The whipstitch was placed, the graft was measured, and an 8 mm size was chosen. The Hohmann retractors were placed radially exposing the attachment point for the distal biceps, i.e., radial tuberosity. The drill tipped guidewire was placed, and placement position was adjusted under fluoroscopic guidance, and this was drilled bicortically. Next, the Endobutton drill 8 mm in diameter was used and drilled unicortically. The saline was used for irrigation, and suction was used to clear all bony debris, and the Endobutton was passed. The tendon was docked with the arm in supination and flexion, and this was tied using the knot pusher. The interference fit screw 8 mm in diameter was then placed, and once again, the suture was tied over this interference fit screw. This produced a stable repair of the tendon. The suture was cut. The retractors were removed. The wound was irrigated and closed using 2-0 Dexon, and a sterile dressing of Adaptic, 4x4s, and Kerlix was applied with a 4-inch Stone. The patient tolerated the procedure well. I attest to the content of the Intraoperative Record and any orders documented therein. Any exception s are noted below.
[2017-09-08 09:40] VITALS: BP 117/73; PULSE 82; TEMP 36.4; O2SAT 97
== END 2017-09-08 09:53 | disposition home or self-care (01) ==
LOC: C.ACU 04:45
DX: S46.221A Laceration of muscle, fascia and tendon of other parts of biceps, right arm, initial encounter (principal); I10 Essential (primary) hypertension; G47.33 Obstructive sleep apnea (adult) (pediatric); E11.9 Type 2 diabetes mellitus without complications; F17.220 Nicotine dependence, chewing tobacco, uncomplicated; Z79.84 Long term (current) use of oral hypoglycemic drugs; Z79.82 Long term (current) use of aspirin; Z88.0 Allergy status to penicillin; Z88.8 Allergy status to other drugs, medicaments and biological substances; Z79.899 Other long term (current) drug therapy; Z99.89 Dependence on other enabling machines and devices